=== PATIENT | male | born 1995 | race Caucasian/White ===

== ENCOUNTER 2016-07-04 15:17 | Emergency (ER) | payer MEDICAID ==
[~2016-07-04] VITALS: Wt 110.5 kg
[2016-07-04] MEDS ORDERED: LIDOCAINE 1% (MDV) 20 ML INJ SC ONE (16:00)
[2016-07-04] MEDS ORDERED: TRIMETHOPRIM/SULFAMETHOX (DS) TAB PO ONE (16:30)
[2016-07-04] MEDS ORDERED: IBUPROFEN 600 MG TAB PO ONE (16:30)
[2016-07-04] MEDS ORDERED: CEPHALEXIN 500 MG CAP PO ONE (16:30)
[2016-07-04] MEDS ORDERED: CEPH-443 PO (16:51)
[2016-07-04] MEDS ORDERED: BACTDS PO (16:51)
[2016-07-04] MEDS ORDERED: IBUP-1542 PO (16:51)
--- NOTE | 2016-07-04 17:25 | ERD ---
ER Documentation Chief Complaint Date/Time DATE: 07/04/16 TIME: 17:07 Chief Complaint LOWER BACK SWELLING/LUMP, PAIN, ONSET 4 DAYS HPI Patient is a 21-year-old male who came to the ER complaining of painful lump on his right upper buttock for 4 days. Lump signs has been increasing and started to drain with purulent fluid yesterday. Pain worsens upon ambulating. Patient denies any trauma, fever, chills, nausea, vomiting, paresthesia or paresis on the lower extremities. Patient did not take any medications to alleviate symptoms. Patient has history of appendectomy denies smoking or IV drug use. ROS All systems reviewed and are negative except as per history of present illness. Medications Home Meds Active Scripts Hydrocodone/Acetaminophen ([place] 5-325 Tablet) 1 Each Tablet, 1 TAB PO Q6H Y for PAIN, #10 TAB Prov:PADMINI CAMPBELL 07/04/16 Cephalexin* (Keflex*) 500 Mg Capsule, 500 MG PO QID for 7 Days, CAP Prov:PADMINI CAMPBELL 07/04/16 Sulfamethoxazole-Trimethoprim* (Bactrim* DS) 800-160 Mg Tab, 1 TAB PO BID for 7 Days, TAB Prov:PADMINI CAMPBELL 07/04/16 Ibuprofen* (Motrin*) 600 Mg Tab, 600 MG PO Q6H Y for PAIN AND OR ELEVATED TEMP, #30 TAB Prov:PADMINI CAMPBELL 07/04/16 Allergies Allergies: Coded Allergies: No Known Allergy (Verified Allergy, Unknown, 12/17/08) PMhx/Soc Medical and Surgical Hx: pt denies Medical Hx, pt denies Surgical Hx Hx Alcohol Use: Yes (socially) Hx Substance Use: No Hx Tobacco Use: No Smoking Status: Never smoker Physical Exam Vitals Vital Signs Date Time Temp Pulse Resp B/P Pulse Ox O2 Delivery O2 Flow Rate FiO2 07/04/16 15:21 100.2 106 18 138/66 96 Physical Exam Physical Exam CONST: Well-developed, well-nourished, in no acute distress. Nontoxic in appearance. HEENT: Atraumatic. Normal Conjunctiva. EOM intact. TM intact. External ear is normal. Clear oropharnyx without erythema. No Uvular deviation. Moist mucous membranes. Supple neck. No meningismus. No submandibular induration. RESP: Clear to auscultation bilaterally. No wheezing. CARDIO: Regular rate and rhythm, no murmurs. ABD: Soft, non tender, non distended. Normal bowel sounds. No McBurney's point tenderness. No guarding or rigidity. No peritoneal signs. SKIN: Approximately 3 x 3" abscess on his right upper medial buttock area. There is some opening on the medial side and draining with purulent fluid. Affected area is erythematous, tender and warm to touch. BACK: No midline or flank tenderness. EXT: No cyanosis or edema. Distal pulses equal and bilateral. NEURO: Awake and alert, appropriate for age Results 24 hrs Current Medications Medications (Trade) Dose Ordered Sig/Gay Route PRN Reason Start Time Stop Time Status Last Admin Dose Admin Lidocaine (Xylocaine 1% (Mdv) 20 ml) 20 ml ONCE ONCE SC 07/04/16 16:00 07/04/16 16:01 DC Ibuprofen (Motrin) 600 mg ONCE ONCE PO 07/04/16 16:30 07/04/16 16:31 DC 07/04/16 16:50 Cephalexin (Keflex) 500 mg ONCE ONCE PO 07/04/16 16:30 07/04/16 16:31 DC 07/04/16 16:49 Trimethoprim/ Sulfamethoxazole (Bactrim (Ds)) 1 tab ONCE ONCE PO 07/04/16 16:30 07/04/16 16:31 DC 07/04/16 16:49 Procedures/MDM EMERGENCY DEPARTMENT COURSE/MEDICAL DECISION MAKING This is a 20-year-old male who came into the emergency department for an abscess on his right upper buttock Abscess Incision and Drainage with irrigation by me: Location: Right upper medial buttock Anesthesia: [Local 1% Lidocaine with epinephrine] Technique: 2 cm incision was made with a scalpel near the opening of abscess. Approximately 10 mL's of bloody, purulent drainage was extracted from the incision. Packing: Iodoform packing strip Complications: [Neurovascularly intact post procedure] After the procedure, patient is a complaining of pain on the abscess area. Case was discussed with Dr. Hernandez and he examined the patient. Dr. Hernandez injected lidocaine 5 cm proximal from the previous incision site and aspirated 50 ml of purulent drainage. Site was packed with iodoform strip and dressing was applied. 48 hour wound check. Scar minimization instructions given. Patient's skin symptoms have stabilized while they have been evaluated in the department and are appropriate for outpatient care and work up. Exam and w/u not consistent w/ sepsis, deep space infection, or foreign body. My primary diagnosis is abscess. Secondary diagnosis are buttock pain Differential diagnoses considered, included but not limited to cellulitis, folliculitis, pilonidal cyst. Pt is hemodynamically stable upon reassessment. The patient was discharged for outpatient management with a prescription for ibuprofen, [place], Bactrim and Keflex. The patient was advised to return to ED in 2 days for wound recheck and followup with their PMD in 1-2 days. Patient was also advised to return to the Emergency Department if there are any new or worsening symptoms. The patient understood and agreed with the diagnosis, treatment and plan. Patient is stable for discharge at this time. Departure Diagnosis: Primary Impression: Abscess Additional Impression: Buttock pain Condition: Stable Patient Instructions: Abscess, Incision And Drainage Additional Instructions: Return to ED in 2 days for wound recheck Follow-up with your primary care physician in 1-2 days. Return to the emergency department immediately should you have any new or worsening symptoms, uncontrolled fevers, or other unexplained symptoms. Take all medications as directed. PADMINI CAMPBELL Jul 04, 2016 17:24
[2016-07-04] MEDS ORDERED: HYDR-906 PO (17:37)
== END 2016-07-04 18:33 | disposition home or self-care (01) ==
LOC: FTE 15:17
DX: L02.31 Cutaneous abscess of buttock (principal)
CPT/HCPCS: 10061; Z7502; Z7610

== ENCOUNTER 2016-07-06 20:58 | Emergency (ER) | payer MEDICAID ==
[~2016-07-06] VITALS: Ht 182.9 cm; Wt 109.0 kg
[~2016-07-06 20:58] MED LIST: BACTDS PO; CEPH-443 PO; HYDR-906 PO; IBUP-1542 PO
[2016-07-06 21:27] VITALS: Ht 182.9 cm; Wt 109.0 kg
--- NOTE | 2016-07-06 21:45 | EN ---
Date/Time of Note Date/Time of Note DATE: 07/06/16 TIME: 21:44 ER Progress Note This 21-year-old male presents here in emergency department for wound check, patient had an incision and drainage done 2 days ago, was told to return here for possible changing of dressing. Patient had a pilonidal cyst abscess, this was removed, patient's taking medications as prescribed, pain is improved. Patient was initially evaluated here in rapid medical examination, upon evaluation, patient needs to have change of dressing, this needs to be done in emergency department 2, patient is awaiting patient bed at this time, patient is stable. SHANTI MARIE NP Jul 06, 2016 21:45
[2016-07-07] MEDS ORDERED: HYDROCODONE/APAP (5/325) TAB PO ONE (01:30)
--- NOTE | 2016-07-07 02:26 | ERD ---
ER Documentation Chief Complaint Date/Time DATE: 07/07/16 TIME: 02:19 Chief Complaint wound check back area HPI Patient is a 29-year-old male who comes to emergency room for wound recheck. Patient had an I&D of the right upper medial buttock abscess done in the ED on July 04. Incision pain is controlled by Orting and ibuprofen. Patient still reports of minimal drainage from the incision site. Denies any fever, chills, nausea, vomiting, chest pain or shortness of breath. ROS All systems reviewed and are negative except as per history of present illness. Medications Home Meds Active Scripts Hydrocodone/Acetaminophen (Orting 5-325 Tablet) 1 Each Tablet, 1 TAB PO Q6H Y for PAIN, #10 TAB Prov:PADMINI CAMPBELL 07/04/16 Cephalexin* (Keflex*) 500 Mg Capsule, 500 MG PO QID for 7 Days, CAP Prov:PADMINI CAMPBELL 07/04/16 Sulfamethoxazole-Trimethoprim* (Bactrim* DS) 800-160 Mg Tab, 1 TAB PO BID for 7 Days, TAB Prov:PADMINI CAMPBELL 07/04/16 Ibuprofen* (Motrin*) 600 Mg Tab, 600 MG PO Q6H Y for PAIN AND OR ELEVATED TEMP, #30 TAB Prov:PADMINI CAMPBELL 07/04/16 Allergies Allergies: Coded Allergies: No Known Allergy (Verified Allergy, Unknown, 12/17/08) PMhx/Soc Medical and Surgical Hx: pt denies Medical Hx, pt denies Surgical Hx Hx Alcohol Use: Yes (socially) Hx Substance Use: No Hx Tobacco Use: No Physical Exam Vitals Vital Signs Date Time Temp Pulse Resp B/P Pulse Ox O2 Delivery O2 Flow Rate FiO2 07/06/16 21:27 97.8 77 20 133/63 98 Physical Exam Physical Exam CONST: Well-developed, well-nourished, in no acute distress. Nontoxic in appearance. HEENT: Atraumatic. Normal conjunctiva. EOM intact. TM intact. External ear is normal. Clear oropharnyx without erythema. No uvular deviation. Moist mucous membranes. Supple neck. No meningismus. No submandibular induration. RESP: Clear to auscultation bilaterally. No wheezing. CARDIO: Regular rate and rhythm, no murmurs. ABD: Soft, non tender, non distended. Normal bowel sounds. No McBurney's point tenderness. No guarding or rigidity. No peritoneal signs. SKIN: Iodoform strip still intact from the incision site. Purulent, bloody drainage still noted. BACK: No midline or flank tenderness. EXT: No cyanosis or edema. Distal pulses equal and bilateral. NEURO: Awake and alert, appropriate for age. Results 24 hrs Current Medications Medications (Trade) Dose Ordered Sig/Gay Route PRN Reason Start Time Stop Time Status Last Admin Dose Admin Acetaminophen/ Hydrocodone Bitart (Orting (5/325)) 1 tab ONCE ONCE PO 07/07/16 01:30 07/07/16 01:31 DC 07/07/16 01:25 Procedures/MDM EMERGENCY DEPARTMENT COURSE/MEDICAL DECISION MAKING This is a 20-year-old male who comes to emergency room for a recheck on his right upper medial buttock abscess The patient was premedicated with Orting. Old iodoform strip was removed with moderate amount bloody, purulent drainage coming out from the site. Replaced with a new iodoform packing strip. Patient tolerated the procedure. My primary diagnosis is wound check abscess. Pt is hemodynamically stable upon reassessment. The patient was discharged home and advised to continue taking the ibuprofen and Orting as needed for pain. Patient was also instructed to return to ED in 4 days for another wound recheck and to return to the Emergency Department if there are any new or worsening symptoms. The patient understood and agreed with the diagnosis, treatment and plan. Patient is stable for discharge at this time. Departure Diagnosis: Primary Impression: Wound check, abscess Condition: Stable Patient Instructions: Abscess Drainage Referrals: [facility] YOU HAVE RECEIVED A MEDICAL SCREENING EXAM AND THE RESULTS INDICATE THAT YOU DO NOT HAVE A CONDITION THAT REQUIRES URGENT TREATMENT IN THE EMERGENCY DEPARTMENT. FURTHER EVALUATION AND TREATMENT OF YOUR CONDITION CAN WAIT UNTIL YOU ARE SEEN IN YOUR DOCTORS OFFICE WITHIN THE NEXT 1-2 DAYS. IT IS YOUR RESPONSIBILITY TO MAKE AN APPOINTMENT FOR FOLOW-UP CARE. IF YOU HAVE A PRIMARY DOCTOR --you should call your primary doctor and schedule an appointment IF YOU DO NOT HAVE A PRIMARY DOCTOR YOU CAN CALL OUR PHYSICIAN REFERRAL HOTLINE AT IF YOU CAN NOT AFFORD TO SEE A PHYSICIAN YOU CAN CHOSE FROM THE FOLLOWING [facility] CL[facility]ICS [facility] [address] [facility]. [facility] [place] [address] [facility] [facility] [address] [facility] [address] [facility] [address] [facility]. [facility]. [address] [facility]. [facility] YOU HAVE RECEIVED A MEDICAL SCREENING EXAM AND THE RESULTS INDICATE THAT YOU DO NOT HAVE A CONDITION THAT REQUIRES URGENT TREATMENT IN THE EMERGENCY DEPARTMENT. FURTHER EVALUATION AND TREATMENT OF YOUR CONDITION CAN WAIT UNTIL YOU ARE SEEN IN YOUR DOCTORS OFFICE WITHIN THE NEXT 1-2 DAYS. IT IS YOUR RESPONSIBILITY TO MAKE AN APPOINTMENT FOR FOLOW-UP CARE. IF YOU HAVE A PRIMARY DOCTOR --you should call your primary doctor and schedule and appointment IF YOU DO NOT HAVE A PRIMARY DOCTOR YOU CAN CALL OUR PHYSICIAN REFERRAL HOTLINE AT . IF YOU CAN NOT AFFORD TO SEE A PHYSICIAN YOU CAN CHOSE FROM THE FOLLOWING [facility] [place] INSTITUTIONS: [facility] [id number] [place] [address] [facility] [address] [place] [address] [facility] [address] [place] [address] Additional Instructions: Return to ED in 4 days for wound recheck Follow-up with your primary care physician in 1-2 days. Return to the emergency department immediately should you have any new or worsening symptoms, uncontrolled fevers, or other unexplained symptoms. Take all medications as directed. PADMINI CAMPBELL Jul 07, 2016 02:26
== END 2016-07-07 02:21 | disposition home or self-care (01) ==
LOC: FTE 20:58
DX: Z48.01 Encounter for change or removal of surgical wound dressing (principal)
CPT/HCPCS: Z7502; Z7610; 99283